=== PATIENT | female | born 1960 | race Caucasian/White ===

== ENCOUNTER → 2023-11-03 | Outpatient (CLI) | payer BC, SELFPAY ==
--- NOTE | 2023-11-03 12:36 | STE_ITS ---
Reason For Study: NUNEZ Stress Results Protocol: Dobutamine Protocol Maximum Predicted HR: 156 bpm Target HR: 133 bpm % Maximum Predicted HR: 85 % DurationHeart Rate Stage (mm:ss) (bpm) BP Dose Comment BASELINE 66 139/74 STAGE 1 3:00 62 147/7710.00 STAGE 2 3:00 91 158/8320.00 STAGE 3 3:00 100 166/8730.000.5 MG ATROPINE IV GIVEN STAGE 4 3:10 133 / 40.00UPSET STOMACH, NAUSEA, DIAPHORETIC, CLAMMY SKIN RECOVERY 96 143/76 Stress Duration: 12:10 mm:ss Maximum Stress HR: 133 bpm Baseline Echocardiogram Findings The estimated ejection fraction is 60 %. EF with dobutamine infusion is 75%. Stress Echo Wall motion Data Resting WM Intermediate WM Stress WM Resting Wall Motion Wall Motion Int. Wall Motion Stress No regional wall motion No regional wall motion No regional wall motion abnormalities noted. abnormalities noted. abnormalities noted. EKG Data The baseline ECG displays normal sinus rhythm. Upsloping ST depression in lead II. No significant ischemic ST-T changes. Symptoms with Stress The patient experinced No chest pain . ECHO/Stress Test Echo w/o Contrast Interpretation Summary The estimated ejection fraction is 60 %. Dobutamine echo is negative for dobutamine infusion induced chest pain or EKG o r echocardiographic changes of ischemia Ordering Physician: Homer Garcia Referring Physician: Homer Garcia Performed By: Vianey Schilling RDCS
== END | disposition home or self-care (01) ==
LOC: CVS 12:34
PROVIDERS: PCP Student in an Organized Health Care Education/Training Program; Referring Provider Student in an Organized Health Care Education/Training Program; Visit Provider Student in an Organized Health Care Education/Training Program
DX: R06.00 Dyspnea, unspecified (principal); I20.89 Other forms of angina pectoris
CPT/HCPCS: 93017; 93350; J7040